=== PATIENT | male | born 1980 | race Hispanic/Latino ===

== ENCOUNTER 2020-12-21 08:33 | Outpatient (CLI) | payer SELFPAY ==
--- NOTE | ~2020-12-21 | CT_ITS ---
EXAMINATION: CT brain wo con DATE: 12/21/2020 08:47 INDICATION: Headache. TECHNIQUE: Computed tomography (CT) of the head was performed without intravenous contrast. The mA wa s adjusted according to patient size. Iterative reconstruction technique was employed. The dose-lengt h product was 599.57 mGy-cm. COMPARISON: None FINDINGS: There is no intracranial hemorrhage, acute infarction, or abnormal intracranial mass lesion . The ventricles are normal in size. There is mild mucosal thickening in the paranasal sinuses. The o rbits are normal. The mastoid air cells are normal. IMPRESSION: 1. Normal brain. Reviewed, dictated and finalized at location D. [employer]IST IMPRESSION: 1. Normal brain.
== END 2020-12-21 08:34 ==
PROVIDERS: Visit Provider Emergency Medicine
DX: R51.9 Headache, unspecified (principal)
CPT/HCPCS: 70450

== ENCOUNTER 2021-12-02 11:55 | Emergency (ER) | payer SELFPAY ==
--- NOTE | ~2021-12-02 | CT_ITS ---
. EXAMINATION: CT orbit BI wo con DATE: 12/02/2021 13:42 INDICATION: Blunt trauma of left eye. TECHNIQUE: Computed tomography (CT) of the orbits was performed without intravenous contrast. Automat ed exposure control and iterative reconstruction technique were employed. The dose-length product was 152.73 mGy-cm. COMPARISON: Head CT 12/21/2020 FINDINGS: The orbits are normal. There is leftward deviation of the nasal septum. There is mild mucos al thickening in the paranasal sinuses. The mastoid air cells are normal. The left mandibular condyle is asymmetrically small. IMPRESSION: 1. No fracture. Reviewed, dictated and finalized at location A. DRIVER IMPRESSION: 1. No fracture.
[2021-12-02 12:20] VITALS: BP 154/79; PULSE 66; RESP 16; TEMP 36.6; O2SAT 100
--- NOTE | 2021-12-02 13:46 | ED.EYEPROB ---
HPI - Eye Problem General Chief complaint: Eye Problems <KELLY Sanchez Last Filed: 12/02/21 17:09> Stated complaint: stabbed wire in left eye <KELLY Sanchez Last Filed: 12/02/21 17:09> Time Seen by Provider: 12/02/21 12:59 <KELLY Sancehz Last Filed: 12/02/21 17:09> Source: patient <KELLY Sanchez Last Filed: 12/02/21 17:09> Mode of arrival: ambulatory <KELLY Sanchez Last Filed: 12/02/21 17:09> Limitations: no limitations <KELLY Sanchez Last Filed: 12/02/21 17:09> History of Present Illness HPI Narrative: This is a 41 year old male that presents to the ER for left eye injury sustained just prior to arrival. Reports he was working on an electrical box and a wire flew out and poked him in the eye. Reports pain and redness to the eye. Also reports blurry vision. He is not up to date on tetanus. Denies vomiting. <KELLY Sanchez Last Filed: 12/02/21 17:09> Related Data Home medications: Home Medications Medication Instructions Recorded Confirmed No Home Medications 12/02/21 12/02/21 <KELLY Sanchez Last Filed: 12/02/21 17:09> Allergies/adverse reactions: Allergies Allergy/AdvReac Type Severity Reaction Status Date / Time No Known Allergies Allergy Verified 12/02/21 12:55 <KELLY Sanchez Last Filed: 12/02/21 17:09> Review of Systems Review of Systems: CONSTITUTIONAL: Denies fever EYES: Reports visual changes, redness. Denies discharge. <KELLY Sanchez Last Filed: 12/02/21 17:09> All systems reviewed & are unremarkable except as noted in HPI and below <KELLY Sanchez Last Filed: 12/02/21 17:09> [facility] Past Medical History Medical History: Medical History (Updated 12/02/21 @ 16:01 by Alexus Washington PA-C) No active medical problems <Alexus Washington PA-C - Last Filed: 12/02/21 17:09> Social History Social History: Social History (Updated 12/02/21 @ 13:49 by Alexus Washington PA-C) Smoking status: Never smoker <Alexus Washington PA-C - Last Filed: 12/02/21 17:09> Exam Narrative: GENERAL: Well-appearing, well-nourished, and in no acute distress. HEAD: Normocephalic EYES: PERRLA and EOMI. Large subconjunctival hemorrhage left eye. Fluorescein stain exam with positive uptake with small corneal abrasion noted. conjunctival abrasion noted in the area of subconjunctival hemorrhage. Slit lamp exam does show a metallic foreign body embedded. Pressure 14 bilaterally. Visual acuity 20/70 left eye and 20/30 right eye CHEST: No respiratory distress. HEART: Regular rate EXTREMITIES: Normal range of motion. No edema. SKIN: Warm, dry, no rash. NEURO: No focal deficits. Alert and oriented x3. PSYCH: Normal mood and affect <Alexus Washington PA-C - Last Filed: 12/02/21 17:09> Course TUBE WRAPPER/PA Physician Supervision Patient presented for evaluation of left eye irritation, concern for metal foreign body. At the time of assessment, visual acuity in the left eye is 20/70, right eye is 20/30. Based on my slit-lamp examination, there is concern for metallic shaving which is reflecting at the inferior lateral border of the left pupil. At the 4 PM aspect of the left pupil. at the inferior lateral border off of the left pupil. At this point, this is not something I can lift off of the cornea; there is a large corneal defect and large subconjunctival hemorrhage also. Plan to transfer to [facility] for opthalmology evaluation. For this patient encounter, I reviewed the TUBE WRAPPER or PA documentation, treatment plan, and medical decision making; and I had eyes-wd-nfon time with this patient. <Nicole Lange MD - Last Filed: 12/02/21 17:21> Consultations Consultation #1: Spoke with Dr. Longo who recommends transfer to [facility] for further evaluation and management <Alexus Washington PA-C - Last Filed: 12/02/21 17:09> Date: 12/02/21 <Alexus Washington PA-C
[2021-12-02] MEDS: TETANUS,DIPHTHERIA,AC PERTUSSIS ADULT (0.5 ML) BOOSTRIX IM (14:08)
[2021-12-02] MEDS: ACETAMINOPHEN 500 MG TABLET 1000 MG PO (14:20)
[2021-12-02] MEDS: OFLOXACIN 0.3% OPHTH SOLN 5 ML BTL 1 DROP LEFT EYE (16:30)
--- NOTE | 2021-12-02 16:41 | PC.NURSE ---
report called to MORTEZA Faith at [facility] er
[2021-12-02 16:43] VITALS: BP 125/81; PULSE 60; RESP 16; TEMP 37.1; O2SAT 98
== END 2021-12-02 17:23 | disposition short-term general hospital (02) ==
PROVIDERS: Emergency Provider Emergency Medicine; PCP Emergency Medicine
DX: T15.92XA Foreign body on external eye, part unspecified, left eye, initial encounter (principal); H54.7 Unspecified visual loss; H11.32 Conjunctival hemorrhage, left eye; Z23 Encounter for immunization; W22.8XXA Striking against or struck by other objects, initial encounter
CPT/HCPCS: 70480; 90471; 90715; 99284; A9270